=== PATIENT | female | born 1985 | race American Indian/Alaskan Native ===

== ENCOUNTER 2021-02-25 17:14 | Inpatient (IN) | payer BC, OTHER ==
[2021-02-25] MEDS: Lactated Ringers 1,000 ML IV SCH (20:00)
[2021-02-25] MEDS ORDERED: Terbutaline 1 MG/ML SDV SUBCUT PRN (20:12)
[2021-02-25] MEDS ORDERED: Methylergonovine 0.2 MG/1 ML Amp IM PRN (20:12)
[2021-02-25] MEDS ORDERED: Lidocaine 1% 50 ML MDV INJECT PRN (20:12)
[2021-02-25] MEDS ORDERED: Water For Irrigation,Sterile 1,000 ML Container IRR PRN (20:12)
[2021-02-25] MEDS ORDERED: Butorphanol 1 MG/ML SDV IVPUSH PRN (20:12)
[2021-02-25] MEDS ORDERED: Misoprostol 200 MCG Tab PO PRN (20:12)
[2021-02-25] MEDS ORDERED: Nalbuphine 10 MG/1 ML Vial IVPUSH PRN (20:12)
[2021-02-25] MEDS ORDERED: Carboprost Tromethamine 250 MCG/1 ML Amp IM PRN (20:12)
[2021-02-25] MEDS ORDERED: Sodium Chloride 0.9% 10 ML SDV IV PRN (20:12)
[2021-02-25] MEDS ORDERED: Ondansetron 4 MG/2 ML SDV IVPUSH PRN (20:12)
[2021-02-25] MEDS ORDERED: Tranexamic Acid 1,000 MG in Sodium Chloride 0.9% 100 ML IV PRN (20:12)
[2021-02-25] MEDS ORDERED: Sodium Chloride 0.9% 10 ML Syringe FLUSH PRN (20:12)
[2021-02-25] MEDS ORDERED: Acetaminophen 325 MG Tab PO PRN (20:12)
[2021-02-25] MEDS ORDERED: Sodium Chloride 0.9% 2.5 ML Syringe FLUSH PRN (20:12)
[2021-02-25] MEDS ORDERED: Oxytocin/0.9 % Sodium Chloride 30 UNIT/500 ML BAG IV SCH ×2 (20:15)
[2021-02-25] MEDS ORDERED: Misoprostol 25 MCG (1/4 of 100 MCG) Tab VAG PRN (20:30)
[2021-02-25] MEDS ORDERED: Ampicillin 2 GM in Sodium Chloride 0.9% 100 ML IV ONE (20:30)
[2021-02-25] MEDS ORDERED: Sodium Chloride 0.9% 100 ML ONE (20:33)
[2021-02-25] MEDS ORDERED: Ampicillin 2 GM Vial ONE (20:33)
[2021-02-25] MEDS ORDERED: Misoprostol 25 MCG (1/4 of 100 MCG) Tab ONE (20:33)
[2021-02-26] MEDS ORDERED: Ampicillin 1 GM Vial ONE ×2 (00:28→04:02)
[2021-02-26] MEDS ORDERED: Sodium Chloride 0.9% 100 ML ONE ×2 (00:29→04:02)
[2021-02-26] MEDS ORDERED: Misoprostol 25 MCG (1/4 of 100 MCG) Tab VAG PRN ×2 (00:30→02:30)
[2021-02-26] MEDS: Ampicillin 1 GM in Sodium Chloride 0.9% 100 ML IV SCH ×3 (00:33→08:07)
[2021-02-26] MEDS: Lactated Ringers 1,000 ML IV SCH ×3 (02:37→15:36)
[2021-02-26] MEDS ORDERED: Ampicillin 1 GM in Sodium Chloride 0.9% 50 ML IV SCH (12:00)
[2021-02-26] MEDS ORDERED: Benzocaine/Menthol 20%-0.5% Spray 78 GM Cannister TOP PRN (17:17)
[2021-02-26] MEDS ORDERED: Ibuprofen 400 MG Tab PO PRN (17:17)
[2021-02-26] MEDS ORDERED: Witch Hazel Medicated Pads 40/Jar TOP PRN (17:17)
[2021-02-26] MEDS ORDERED: Bisacodyl 10 MG Supp RECTAL PRN (17:17)
[2021-02-26] MEDS ORDERED: Docusate Sodium 100 MG Cap PO PRN (17:17)
[2021-02-26] MEDS ORDERED: oxyCODONE 5 MG Tab PO PRN (17:17)
[2021-02-26] MEDS ORDERED: Acetaminophen 500 MG Tab PO PRN ×2 (17:17)
[2021-02-26] MEDS ORDERED: Lanolin 100% Cream 7 GM Tube TOP PRN (17:17)
--- NOTE | 2021-02-26 17:25 | PCM.OPNOTE ---
- General Post-Op/Procedure Note Date of Surgery/Procedure: 02/26/21 Operative Procedure(s): /1st MLL repaired Findings: Viable male APGARs 9,9 weight pending. Spontaneous delivery intact placenta with 3 V cord. Pre Op Diagnosis: 37/6 week IUP. Mild preeclampsia. GBBS + Post-Op Diagnosis: Same Anesthesia Technique: Local Primary Surgeon: Inna Juarez EBL in mLs: 250 Complications: none known Condition: Stable Free Text/Narrative:: Dictation [id number]
[2021-02-26] MEDS: Ibuprofen 800 MG Tab PO PRN (18:46)
--- NOTE | 2021-02-27 00:32 | OR ---
SURGEON: Inna Juarez M.D. DATE OF PROCEDURE: 02/26/2021 PREOPERATIVE DIAGNOSES: 1. A 37 and 6 weeks' intrauterine . 2. Mild preeclampsia. 3. Group B beta strep positive. POSTOPERATIVE DIAGNOSES: 1. A 37 and 6 weeks' intrauterine . 2. Mild preeclampsia. 3. Group B beta strep positive. PROCEDURES: Spontaneous vaginal delivery and a first-degree midline laceration repaired. ANESTHESIA: Local. COMPLICATIONS: None known. FINDINGS: Viable male, scores 9 at 1 minute and 9 at 5 minutes. Weight is pending. Spontaneous delivery. Intact placenta, 3-vessel cord. DISPOSITION: to nursery, mom in LDRP. 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 She was found to have elevated blood pressures, labs overall reassuring; therefore, she was admitted. Serial blood pressures were performed. She was found to have labile blood pressures ranging in the 110s over 60s to the 150s over 90s, therefore, given term gestation and with abnormal proteinuria, admitted for mild preeclampsia. The patient underwent Cytotec ripening and responded nicely to this with category I heart tones. By the following morning, she was found to be 2 cm, 50% effaced, -2 station. She was transitioned to Pitocin and tolerated this well. She is receiving ampicillin prophylaxis for group B beta strep positive status. Shortly before 9 a.m., the patient underwent amniotomy. A large amount of clear fluid was returned. The head was descending nicely in the pelvis. She was found to be 3 cm, 70% effaced, -2 station. The patient continued to make progress throughout the day. Shortly after 1 p.m., was found to be 7 cm, progressed to 9 cm shortly before 4 p.m., and by 4:30 p.m., she was found to be complete, 100% effaced, 0 station. She began pushing efforts, pushed adequately, and was able to deliver to a +3 station. She was placed in modified dorsal lithotomy position and was prepped and draped in the usual aseptic manner. With continued pushing efforts, she was able to deliver the 's head atraumatically spontaneously, followed by the anterior shoulder, the posterior shoulder, and the remainder of the body. There was a nuchal cord x1 noted. This was reduced manually. The 's oropharynx and nares were bulb suctioned. The was handed off to his mother with attending nursery staff and pole cutter at her side. After a delay, the cord was clamped x2 and cut. Cord arterial, cord venous, and cord blood sampling were obtained. Light pressure was applied while the placenta was delivered spontaneously intact. Vigorous fundal uterine massage was then applied while 30 units of Pitocin was delivered in 500 mL of IV fluid. Upon inspection of the cervix, vaginal sidewall, and perineum, there was found to be a first-degree midline laceration. This region was prepped with approximately 3 mL of 1% lidocaine, and then, using 3-0 Vicryl, 2 [id number] sutures were placed. Hemostasis appeared evident. The patient had tolerated the procedure well overall. Her blood pressures are ranging in the 110s to 130s over 60s to 80s. We will continue to monitor closely. She denies any headache at this time. Sponge, instrument, and needle count was correct. The patient remained in LDRP, to nursery. PATTY / TIMBO /[id number]
[2021-02-27] MEDS: Ibuprofen 800 MG Tab PO PRN (11:06)
--- NOTE | 2021-02-27 13:21 | PCM.PNPP ---
- General Info Date of Service: 02/27/21 Subjective Update: 35yo s/p , she was induced for Mild preclampsia. She denies Headache , RUQ pain and BV Bps - Mild range 120 - 130s /70 - 90s Functional Status: Reports: Pain Controlled, Tolerating Diet, Ambulating, Urinating - Review of Systems General: Reports: No Symptoms HEENT: Reports: No Symptoms Pulmonary: Reports: No Symptoms Cardiovascular: Reports: No Symptoms Gastrointestinal: Reports: No Symptoms Genitourinary: Reports: No Symptoms Musculoskeletal: Reports: No Symptoms Skin: Reports: No Symptoms Neurological: Reports: No Symptoms Psychiatric: Reports: No Symptoms - General Info Date of Service: 02/27/21 - Patient Data Vital Signs - Most Recent: Last Vital Signs Temp 35.6 C L 02/27/21 08:37 Pulse 85 02/27/21 08:37 Resp 18 02/27/21 08:37 BP 134/97 H 02/27/21 08:37 Pulse Ox 95 02/27/21 08:37 Weight - Most Recent: 108.409 kg Lab Results - Last 24 Hours: Laboratory Results - last 24 hr 02/26/21 02/27/21 Range/Units 16:58 06:01 WBC 16.90 H (4.0-11.0) K/uL RBC 3.58 L (4.30-5.90) M/uL Hgb 10.3 L (12.0-16.0) g/dL Hct 31.1 L (36.0-46.0) % MCV 86.9 (80.0-98.0) fL MCH 28.8 (27.0-32.0) pg MCHC 33.1 (31.0-37.0) g/dL RDW Std Deviation 49.4 (28.0-62.0) fl RDW Coeff of Deborah 16 H (11.0-15.0) % Plt Count 201 (150-400) K/uL MPV 10.10 (7.40-12.00) fL Nucleated RBC % 0.0 /100WBC Nucleated RBCs # 0 K/uL Cord ABG pH 7.165 L (7.18-7.38) Cord ABG Base Excess -11 L (-10--2) Cord VBG pH 7.253 (7.25-7.45) Cord VBG Base Excess -10 (-10--2) Med Orders - Current: Current Medications Acetaminophen (Acetaminophen 500 Mg Tab) 500 mg PO Q4H PRN PRN Reason: Pain Acetaminophen (Acetaminophen 500 Mg Tab) 1,000 mg PO Q4H PRN PRN Reason: Pain Benzocaine/Menthol (Benzocaine/Menthol 20%-0.5% [place] 78 Gm Cannister) 78 gm TOP ASDIRECTED PRN PRN Reason: Perineal Comfort Measure Last Admin: 02/26/21 18:44 Dose: 1 canister Documented by: Bisacodyl (Bisacodyl 10 Mg Supp) 10 mg RECTAL ONETIME PRN PRN Reason: Constipation Carboprost Tromethamine (Carboprost Tromethamine 250 Mcg/1 Ml Amp) 250 mcg IM ASDIRECTED PRN PRN Reason: Post Hemorrhage Docusate Sodium (Docusate Sodium 100 Mg Cap) 100 mg PO BID PRN PRN Reason: Constipation Emollient Ointment (Lanolin 100% Cream 7 Gm Tube) 0 gm TOP ASDIRECTED PRN PRN Reason: Sore Nipples Last Admin: 02/26/21 18:42 Dose: 7 g Documented by: Oxytocin/Sodium Chloride (Oxytocin 30 Unit/500 Ml-Ns) 30 unit in 500 mls @ 2 mls/hr IV TITRATE PERLITA; Protocol Last Admin: 02/26/21 16:58 Dose: 999 mls/hr Documented by: Tranexamic Acid 1,000 mg/ (Sodium Chloride) 110 mls @ 660 mls/hr IV ONETIME PRN PRN Reason: Bleeding Lactated Ringer's (Ringers, Lactated) 1,000 mls @ 150 mls/hr IV ASDIRECTED PERLITA Last Admin: 02/26/21 15:36 Dose: 500 mls/hr Documented by: Ibuprofen (Ibuprofen 400 Mg Tab) 400 mg PO Q4H PRN PRN Reason: Pain Ibuprofen (Ibuprofen 800 Mg Tab) 800 mg PO Q6H PRN PRN Reason: Pain Last Admin: 02/27/21 11:06 Dose: 800 mg Documented by: Lidocaine HCl (Lidocaine 1% 50 Ml Mdv) 50 ml INJECT ONETIME PRN PRN Reason: Laceration repair Last Admin: 02/26/21 17:03 Dose: 50 ml Documented by: Ondansetron HCl (Ondansetron 4 Mg/2 Ml Sdv) 4 mg IVPUSH Q6H PRN PRN Reason: Nausea/Vomiting Last Admin: 02/26/21 14:47 Dose: 4 mg Documented by: Oxycodone HCl (Oxycodone 5 Mg Tab) 5 mg PO Q2H PRN PRN Reason: Pain Sodium Chloride (Sodium Chloride 0.9% 10 Ml Syringe) 10 ml FLUSH ASDIRECTED PRN PRN Reason: Keep Vein Open Sodium Chloride (Sodium Chloride 0.9% 2.5 Ml Syringe) 2.5 ml FLUSH ASDIRECTED PRN PRN Reason: Keep Vein Open Sterile Water (Water For Irrigation,Sterile 1,000 Ml Container) 1,000 ml IRR ASDIRECTED PRN PRN Reason: delivery Witch Lisa (Witch Lisa Medicated Pads 40/Jar) 1 pad TOP ASDIRECTED PRN PRN Reason: comfort care Last Admin: 02/26/21 18:45 Dose: 1 tub Documented by: Discontinued Medications Ampicillin Sodium (Ampicillin 2 Gm Vial) Confirm Administered Dose 2 gm .ROUTE .STK-MED ONE Stop: 02/25/21 20:34 Last Admin: 02/26/21 08:08 Dose: Not Given Documented by: Ampicillin Sodium (Ampicillin 1 Gm Vial) Confirm Administered Dose 1 gm .ROUTE .STK-MED ONE Stop: 02/26/21 00:29 Last Admin: 02/26/21 08:08 Dose: Not Given Documented by: Ampicillin Sodium (Ampicillin 1 Gm Vial) Confirm Administered Dose 1 gm .ROUTE .STK-MED ONE Stop: 02/26/21 04:03 Last Admin: 02/26/21 08:08 Dose: Not Given Documented by: Butorphanol Tartrate (Butorphanol 1 Mg/Ml Sdv) 1 mg IVPUSH Q1H PRN PRN Reason: Pain Oxytocin/Sodium Chloride (Oxytocin 30 Unit/500 Ml-Ns) 30 unit in 500 mls @ 2 mls/hr IV TITRATE PERLITA; Protocol Last Titration: 02/26/21 16:58 Dose: 0 munits/min, 0 mls/hr Documented by: Ampicillin Sodium 2 gm/ Sodium (Chloride) 100 mls @ 200 mls/hr IV ONETIME ONE Stop: 02/25/21 20:59 Last Admin: 02/25/21 20:38 Dose: 200 mls/hr Documented by: Ampicillin Sodium 1 gm/ Sodium (Chloride) 100 mls @ 100 mls/hr IV Q4H [facility] Last Admin: 02/26/21 08:07 Dose: 100 mls/hr Documented by: Sodium Chloride (Normal Saline) Confirm Administered Dose 100 mls @ as directed .ROUTE .[facility]-MED ONE Stop: 02/25/21 20:34 Last Admin: 02/26/21 08:08 Dose: Not Given Documented by: Sodium Chloride (Normal Saline) Confirm Administered Dose 100 mls @ as directed .ROUTE .[facility] ONE Stop: 02/26/21 00:30 Last Admin: 02/26/21 08:07 Dose: Not Given Documented by: Sodium Chloride (Normal Saline) Confirm Administered Dose 100 mls @ as directed .ROUTE .[facility] ONE Stop: 02/26/21 04:03 Last Admin: 02/26/21 08:08 Dose: Not Given Documented by: Ampicillin Sodium 1 gm/ Sodium (Chloride) 50 mls @ 100 mls/hr IV Q4H [facility] Last Admin: 02/26/21 12:37 Dose: 100 mls/hr Documented by: Methylergonovine Maleate (Methylergonovine 0.2 Mg/1 Ml Amp) 0.2 mg IM ASDIRECTED PRN PRN Reason: Post Hemorrhage Misoprostol (Misoprostol 200 Mcg Tab) 200 mcg PO ONETIME PRN PRN Reason: Post Hemorrhage Misoprostol (Misoprostol 25 Mcg (1/4 Of 100 Mcg) Tab) 25 mcg VAG ONETIME PRN PRN Reason: Cervical Ripening Last Admin: 02/25/21 20:38 Dose: 25 mcg Documented by: Misoprostol (Misoprostol 25 Mcg (1/4 Of 100 Mcg) Tab) 25 mcg VAG Q6H PRN PRN Reason: Cervical Ripening Misoprostol (Misoprostol 25 Mcg (1/4 Of 100 Mcg) Tab) Confirm Administered Dose 25 mcg .ROUTE .[facility]-MED ONE Stop: 02/25/21 20:34 Last Admin: 02/26/21 08:08 Dose: Not Given Documented by: Misoprostol (Misoprostol 25 Mcg (1/4 Of 100 Mcg) Tab) 25 mcg VAG Q6H PRN PRN Reason: Cervical Ripening Last Admin: 02/26/21 02:33 Dose: 25 mcg Documented by: Nalbuphine HCl (Nalbuphine 10 Mg/1 Ml Vial) 10 mg IVPUSH Q1H PRN PRN Reason: Pain (severe 7-10) Sodium Chloride (Sodium Chloride 0.9% 10 Ml Sdv) 10 ml IV ASDIRECTED PRN PRN Reason: IV Use Terbutaline Sulfate (Terbutaline 1 Mg/Ml Sdv) 0.25 mg SUBCUT ASDIRECTED PRN PRN Reason: Tacysystole - Interaction Support Person: , Mother - Recovery Exam Fundal Tone: Firm Fundal Level: At Umbilicus Fundal Placement: Midline Lochia Amount: Scant Lochia Color: Rubra/Red Perineum Description: Edematous Episiotomy/Laceration: Approximated Bladder Status: Nonpalpable, Voiding Urinary Elimination: Voided - Exam General: Alert HEENT: Pupils Equal Neck: Supple Lungs: Clear to Auscultation Cardiovascular: Regular Rate, Regular Rhythm GI/Abdominal Exam: Normal Bowel Sounds Skin: Warm Neurological: No New Focal Deficit - Problem List & Annotations (1) Mild pre-eclampsia SNOMED Code(s): 29633842 Code(s): O14.00 - MILD TO MODERATE PRE-ECLAMPSIA, UNSPECIFIED TRIMESTER Status: Acute Current Visit: Yes - Problem List Review Problem List Initiated/Reviewed/Updated: Yes - Assessment Assessment:: 35yo s/p , Mild preclampsia , Mild range BPs , Stable Normal lochia - Plan Plan:: Pain control as needed vitamin and iron Continue breast feeding Monitor for signs and symptoms of severe preclampsia Wants Discharge home today Discharge in evening if BP still mild range , will follow up in 1 week for BP check
--- NOTE | 2021-02-28 07:56 | PCM.PNPP ---
- General Info Date of Service: 02/28/21 Subjective Update: Patient doing really well this morning. Denies PIH symptoms. Bleeding scant. Functional Status: Reports: Pain Controlled, Tolerating Diet, Ambulating, Urinating - Review of Systems General: Reports: No Symptoms HEENT: Reports: No Symptoms Pulmonary: Reports: No Symptoms Cardiovascular: Reports: No Symptoms Gastrointestinal: Reports: No Symptoms Genitourinary: Reports: No Symptoms Musculoskeletal: Reports: No Symptoms Skin: Reports: No Symptoms Neurological: Reports: No Symptoms Psychiatric: Reports: No Symptoms - Patient Data Vital Signs - Most Recent: Last Vital Signs Temp 35.8 C L 02/28/21 05:40 Pulse 75 02/28/21 05:40 Resp 16 02/28/21 05:40 BP 124/72 02/28/21 05:40 Pulse Ox 97 02/28/21 05:40 Weight - Most Recent: 108.409 kg Med Orders - Current: Current Medications Acetaminophen (Acetaminophen 500 Mg Tab) 500 mg PO Q4H PRN PRN Reason: Pain Acetaminophen (Acetaminophen 500 Mg Tab) 1,000 mg PO Q4H PRN PRN Reason: Pain Benzocaine/Menthol (Benzocaine/Menthol 20%-0.5% [place] 78 Gm Cannister) 78 gm TOP ASDIRECTED PRN PRN Reason: Perineal Comfort Measure Last Admin: 02/26/21 18:44 Dose: 1 canister Documented by: Bisacodyl (Bisacodyl 10 Mg Supp) 10 mg RECTAL ONETIME PRN PRN Reason: Constipation Carboprost Tromethamine (Carboprost Tromethamine 250 Mcg/1 Ml Amp) 250 mcg IM ASDIRECTED PRN PRN Reason: Post Hemorrhage Docusate Sodium (Docusate Sodium 100 Mg Cap) 100 mg PO BID PRN PRN Reason: Constipation Emollient Ointment (Lanolin 100% Cream 7 Gm Tube) 0 gm TOP ASDIRECTED PRN PRN Reason: Sore Nipples Last Admin: 02/26/21 18:42 Dose: 7 g Documented by: Oxytocin/Sodium Chloride (Oxytocin 30 Unit/500 Ml-Ns) 30 unit in 500 mls @ 2 mls/hr IV TITRATE PERLITA; Protocol Last Admin: 02/26/21 16:58 Dose: 999 mls/hr Documented by: Tranexamic Acid 1,000 mg/ (Sodium Chloride) 110 mls @ 660 mls/hr IV ONETIME PRN PRN Reason: Bleeding Lactated Ringer's (Ringers, Lactated) 1,000 mls @ 150 mls/hr IV ASDIRECTED PERLITA Last Admin: 02/26/21 15:36 Dose: 500 mls/hr Documented by: Ibuprofen (Ibuprofen 400 Mg Tab) 400 mg PO Q4H PRN PRN Reason: Pain Ibuprofen (Ibuprofen 800 Mg Tab) 800 mg PO Q6H PRN PRN Reason: Pain Last Admin: 02/27/21 11:06 Dose: 800 mg Documented by: Lidocaine HCl (Lidocaine 1% 50 Ml Mdv) 50 ml INJECT ONETIME PRN PRN Reason: Laceration repair Last Admin: 02/26/21 17:03 Dose: 50 ml Documented by: Ondansetron HCl (Ondansetron 4 Mg/2 Ml Sdv) 4 mg IVPUSH Q6H PRN PRN Reason: Nausea/Vomiting Last Admin: 02/26/21 14:47 Dose: 4 mg Documented by: Oxycodone HCl (Oxycodone 5 Mg Tab) 5 mg PO Q2H PRN PRN Reason: Pain Sodium Chloride (Sodium Chloride 0.9% 10 Ml Syringe) 10 ml FLUSH ASDIRECTED PRN PRN Reason: Keep Vein Open Sodium Chloride (Sodium Chloride 0.9% 2.5 Ml Syringe) 2.5 ml FLUSH ASDIRECTED PRN PRN Reason: Keep Vein Open Sterile Water (Water For Irrigation,Sterile 1,000 Ml Container) 1,000 ml IRR ASDIRECTED PRN PRN Reason: delivery Witch Lisa (Witch Lisa Medicated Pads 40/Jar) 1 pad TOP ASDIRECTED PRN PRN Reason: comfort care Last Admin: 02/26/21 18:45 Dose: 1 tub Documented by: Discontinued Medications Ampicillin Sodium (Ampicillin 2 Gm Vial) Confirm Administered Dose 2 gm .ROUTE .STK-MED ONE Stop: 02/25/21 20:34 Last Admin: 02/26/21 08:08 Dose: Not Given Documented by: Ampicillin Sodium (Ampicillin 1 Gm Vial) Confirm Administered Dose 1 gm .ROUTE .STK-MED ONE Stop: 02/26/21 00:29 Last Admin: 02/26/21 08:08 Dose: Not Given Documented by: Ampicillin Sodium (Ampicillin 1 Gm Vial) Confirm Administered Dose 1 gm .ROUTE .STK-MED ONE Stop: 02/26/21 04:03 Last Admin: 02/26/21 08:08 Dose: Not Given Documented by: Butorphanol Tartrate (Butorphanol 1 Mg/Ml Sdv) 1 mg IVPUSH Q1H PRN PRN Reason: Pain Oxytocin/Sodium Chloride (Oxytocin 30 Unit/500 Ml-Ns) 30 unit in 500 mls @ 2 mls/hr IV TITRATE PERLITA; Protocol Last Titration: 02/26/21 16:58 Dose: 0 munits/min, 0 mls/hr Documented by: Ampicillin Sodium 2 gm/ Sodium (Chloride) 100 mls @ 200 mls/hr IV ONETIME ONE Stop: 02/25/21 20:59 Last Admin: 02/25/21 20:38 Dose: 200 mls/hr Documented by: Ampicillin Sodium 1 gm/ Sodium (Chloride) 100 mls @ 100 mls/hr IV Q4H PERLITA Last Admin: 02/26/21 08:07 Dose: 100 mls/hr Documented by: Sodium Chloride (Normal Saline) Confirm Administered Dose 100 mls @ as directed .ROUTE .STK-MED ONE Stop: 02/25/21 20:34 Last Admin: 02/26/21 08:08 Dose: Not Given Documented by: Sodium Chloride (Normal Saline) Confirm Administered Dose 100 mls @ as directed .ROUTE .STK-MED ONE Stop: 02/26/21 00:30 Last Admin: 02/26/21 08:07 Dose: Not Given Documented by: Sodium Chloride (Normal Saline) Confirm Administered Dose 100 mls @ as directed .ROUTE .STK-MED ONE Stop: 02/26/21 04:03 Last Admin: 02/26/21 08:08 Dose: Not Given Documented by: Ampicillin Sodium 1 gm/ Sodium (Chloride) 50 mls @ 100 mls/hr IV Q4H PERLITA Last Admin: 02/26/21 12:37 Dose: 100 mls/hr Documented by: Methylergonovine Maleate (Methylergonovine 0.2 Mg/1 Ml Amp) 0.2 mg IM ASDIRECTED PRN PRN Reason: Post Hemorrhage Misoprostol (Misoprostol 200 Mcg Tab) 200 mcg PO ONETIME PRN PRN Reason: Post Hemorrhage Misoprostol (Misoprostol 25 Mcg (1/4 Of 100 Mcg) Tab) 25 mcg VAG ONETIME PRN PRN Reason: Cervical Ripening Last Admin: 02/25/21 20:38 Dose: 25 mcg Documented by: Misoprostol (Misoprostol 25 Mcg (1/4 Of 100 Mcg) Tab) 25 mcg VAG Q6H PRN PRN Reason: Cervical Ripening Misoprostol (Misoprostol 25 Mcg (1/4 Of 100 Mcg) Tab) Confirm Administered Dose 25 mcg .ROUTE .STK-MED ONE Stop: 02/25/21 20:34 Last Admin: 02/26/21 08:08 Dose: Not Given Documented by: Misoprostol (Misoprostol 25 Mcg (1/4 Of 100 Mcg) Tab) 25 mcg VAG Q6H PRN PRN Reason: Cervical Ripening Last Admin: 02/26/21 02:33 Dose: 25 mcg Documented by: Nalbuphine HCl (Nalbuphine 10 Mg/1 Ml Vial) 10 mg IVPUSH Q1H PRN PRN Reason: Pain (severe 7-10) Sodium Chloride (Sodium Chloride 0.9% 10 Ml Sdv) 10 ml IV ASDIRECTED PRN PRN Reason: IV Use Terbutaline Sulfate (Terbutaline 1 Mg/Ml Sdv) 0.25 mg SUBCUT ASDIRECTED PRN PRN Reason: Tacysystole - Interaction Disposition, : in Room with Family Feeding: Bottle Fed , Breastfed ; Nursed Well Support Person: , Mother - Recovery Exam Fundal Tone: Firm Fundal Level: At Umbilicus Fundal Placement: Midline Lochia Amount: Scant Lochia Color: Rubra/Red Other Perinuem Description: 1st degree laceration Bladder Status: Voiding Urinary Elimination: Voided - Exam General: Alert, Oriented Neck: Supple Lungs: Normal Respiratory Effort GI/Abdominal Exam: Soft, Non-Tender, No Distention Extremities: Non-Tender Skin: Warm, Dry, Intact Neurological: No New Focal Deficit Psy/Mental Status: Alert, Normal Affect, Normal Mood - Problem List & Annotations (1) Mild pre-eclampsia SNOMED Code(s): 24804208 Code(s): O14.00 - MILD TO MODERATE PRE-ECLAMPSIA, UNSPECIFIED TRIMESTER Status: Acute Current Visit: Yes (2) Vaginal delivery SNOMED Code(s): 934061376 Code(s): O80 - ENCOUNTER FOR FULL-TERM UNCOMPLICATED DELIVERY Status: Acute Current Visit: No - Problem List Review Problem List Initiated/Reviewed/Updated: Yes - My Orders Last 24 Hours: My Active Orders 02/28/21 07:54 Ready for Discharge [RC] PER UNIT ROUTINE Vaccines to be Administered [RC] PER UNIT ROUTINE Measles, Mumps & Rubella [M-M-R II Vaccine] 0.5 ml SUBCUT .ONCE ONE - Assessment Assessment:: 35yo s/p , Mild preclampsia , BP has normalized Normal lochia - Plan Plan:: Pain control as needed vitamin and iron Continue breast feeding Monitor for signs and symptoms of severe preeclampsia Discharge home today, reviewed precautions/preeclampsia symptoms. BP check in clinic in 1 week. MMR today.
[2021-02-28] MEDS ORDERED: Measles, Mumps & Rubella Vaccine 0.5 ML SDV SUBCUT ONE (08:00)
[2021-02-28 09:16] VITALS: BP 139/89; PULSE 74
== END 2021-02-28 15:16 | disposition home or self-care (01) | DRG 560 ==
LOC: MW.OBCHECK 17:14 → MW.OB 17:14 → MW.OBCHECK 20:12 → OBSVTOIN 02-26 17:17 → MW.OB 02-26 19:04
PROVIDERS: ADMIT Obstetrics & Gynecology; ATTEND Obstetrics & Gynecology
PROC: 10E0XZZ Delivery of Products of Conception, External Approach (ICD-10-PCS; principal; 2021-02-26)
PROC: 0HQ9XZZ Repair Perineum Skin, External Approach (ICD-10-PCS; 2021-02-26)
PROC: 3E0P7VZ Introduction of Hormone into Female Reproductive, Via Natural or Artificial Opening (ICD-10-PCS; 2021-02-26)
PROC: 10907ZC Drainage of Amniotic Fluid, Therapeutic from Products of Conception, Via Natural or Artificial Opening (ICD-10-PCS; 2021-02-26)
PROC: 3E033VJ Introduction of Other Hormone into Peripheral Vein, Percutaneous Approach (ICD-10-PCS; 2021-02-26)
DX: O14.04 Mild to moderate pre-eclampsia, complicating childbirth (principal); Z3A.37 37 weeks gestation of pregnancy; Z37.0 Single live birth; O99.824 Streptococcus B carrier state complicating childbirth; O69.81X0 Labor and delivery complicated by cord around neck, without compression, not applicable or unspecified; O70.0 First degree perineal laceration during delivery; Z20.822 Contact with and (suspected) exposure to COVID-19
CPT/HCPCS: 36415; 59025; 59409; 82803; 85027; 86592; 86850; 86900; 86901; 90707; A9270-GY; G0010; J0290; J2001; J2405; J2590; J7120; U0002

== ENCOUNTER 2021-08-17 14:21 | Emergency (ER) | payer BC, OTHER ==
--- NOTE | 2021-08-17 15:39 | PCM.EKG ---
#1 Interpretation EKG Date: 08/17/21 Time: 15:19 Rhythm: NSR Rate (Beats/Min): 83 [place]: Normal P-Wave: Present QRS: Normal ST-T: Normal QT: Normal Comparison: NA - No Prior EKG EKG Interpretation Comments: Sinus Rhythm
--- NOTE | 2021-08-17 17:04 | EDM.PDOC ---
ED HPI GENERAL MEDICAL PROBLEM - General Chief Complaint: Respiratory Problem Stated Complaint: CHEST COLD,SOAR THROAT Time Seen by Provider: 08/17/21 17:02 - History of Present Illness INITIAL COMMENTS - FREE TEXT/NARRATIVE: CHIEF COMPLAINT(S): Covid-like symptoms HISTORY OF PRESENT ILLNESS: This is a 35-year-old woman without any significant past medical history who comes to the emergency department with a chief complaint of Covid-like symptoms. The patient states that for the last 3 days she has been experiencing body aches, intermittent fever and chest discomfort associated with a headache which is bifrontal behind her eyes which she rates as 6-7 out of 10 not associated with any blurry vision, double vision, loss of vision, numbness, tingling, or weakness. She states that the pain is not exacerbated by anything. She states that she has tried DayQuil without any relief. She states the main reason she is here is because she lost her smell and is concerned that she may have COVID-19. She denies any shortness of breath but states that she does have a mild cough. She denies any other symptoms. REVIEW OF SYSTEMS: Constitutional: Positive for intermittent fever Eyes: Denies eye pain Ears, Nose, Mouth, & Throat: Denies earache Cardiovascular: Positive for chest discomfort denies chest pain Respiratory: Positive for nonproductive cough denies shortness of breath Gastrointestinal: Denies Nausea, vomiting, diarrhea, hematochezia. Genitourinary: Denies hematuria Skin:Denies a rash MSK: Denies joint pain Neurological: Positive for headache. Denies blurred vision, numbness, tingling, weakness Psychiatric: Denies depression PAST MEDICAL HISTORY: As per history of present illness and as reviewed below otherwise noncontributory. SURGICAL HISTORY: As per history of present illness and as reviewed below otherwise noncontributory. SOCIAL HISTORY: As per history of present illness and as reviewed below otherwise noncontributory. FAMILY HISTORY: As per history of present illness and as reviewed below otherwise noncontributory. EXAMINATION OF ORGAN SYSTEMS/BODY AREAS: Constitutional: Blood pressure is 130/90, heart rate 85, respiratory 15 with an oxygen saturation of 95% on room air. Temperature 36.7 General: Well-appearing woman who is in no acute distress Psychiatric: Appropriate mood and affect. Eyes: No scleral icterus or conjunctival erythema ENMT: Moist mucous membranes. No pharyngeal erythema Cardiovascular: Regular, rate, and rhythm. No gallops, murmurs, or rubs. Bilateral upper extremity pulses symmetric and intact. No peripheral edema. No JVD. Respiratory: Lungs clear to auscultation bilaterally. No wheezes, rales, or rhonchi. Gastrointestinal: Soft, non-tender, non-distended. Normoactive bowel sounds Genitourinary: No suprapubic tenderness Musculoskeletal: Normal range of motion. Skin: No lesions or abrasions. Neurological: Alert, GCS 15 strength and sensation grossly intact in upper and lower extremities bilaterally MEDICAL DECISION MAKING AND COURSE IN THE ED WITH INTERPRETATION/REVIEW OF DIAGNOSTIC STUDIES: This is a 35-year-old woman without any significant past medical history who comes to the emergency department with Covid-like symptoms who has normal vital signs. Given the chest discomfort we did obtain a screening EKG which was unremarkable. We will obtain a Covid swab. I do not believe any further labs or other imaging are indicated. DDx: COVID-19, viral upper respiratory infection, pneumonia Laboratory: Covid is positive. After lab I did discuss results with the patient. I did discuss strict return precautions with the patient. I discussed that she is considered high risk given her BMI and did offer the Regeneron therapy. She was amenable to this plan. She had no further questions and was amenable to discharge. DISPOSITION: The patient was discharged home in stable condition. The patient will follow up with primary care physician after her isolation. CONDITION: Fair PROCEDURES: None FINAL IMPRESSION(S)/DIAGNOSES: 1. Acute COVID-19 Gabo Landa M.D. 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 Respiratory History: Reports: None Gastrointestinal History: Reports: None Genitourinary History: Reports: None [employer] History: Reports: Musculoskeletal History: Reports: None Neurological History: Reports: None Psychiatric History: Reports: None Endocrine/Metabolic History: Reports: None Hematologic History: Reports: None Immunologic History: Reports: None Oncologic (Cancer) History: Reports: None Dermatologic History: Reports: None - Infectious Disease History Infectious Disease History: Reports: None - Past Surgical History Head Surgeries/Procedures: Reports: None HEENT Surgical History: Reports: Oral Surgery Other HEENT Surgeries/Procedures: wisdom teeth surgery Cardiovascular Surgical History: Reports: Cardiac Ablation Social & Family History - Family History Family Medical History: No Pertinent Family History Endocrine/Metabolic: Reports: Diabetes, type II - Caffeine Use Caffeine Use: Reports: Coffee ED ROS GENERAL - Review of Systems Review Of Systems: See Below ED EXAM, GENERAL - Physical Exam Exam: See Below Course - Vital Signs Last Recorded V/S: Last Vital Signs Temp 36.7 C 08/17/21 15:23 Pulse 92 08/17/21 17:07 Resp 16 08/17/21 17:07 BP 140/97 H 08/17/21 17:07 Pulse Ox 96 08/17/21 17:07 - Orders/Labs/Meds Labs: Laboratory Tests 08/17/21 Range/Units 16:08 SARS-CoV-2 RNA (VIRGEN) POSITIVE H (NEGATIVE) Departure - Departure Time of Disposition: 17:24 Disposition: Home, Self-Care 01 Condition: Fair Clinical Impression: COVID-19 - Discharge Information *PRESCRIPTION DRUG MONITORING PROGRAM REVIEWED*: No *COPY OF PRESCRIPTION DRUG MONITORING REPORT IN PATIENT VIKY: No Instructions: 10 Things You Can Do to Manage Your COVID-19 Symptoms at Home - [facility] (04/25/2021), Symptoms of COVID-19 - [facility] (12/02/2020), COVID-19: Quarantine vs. Isolation - [facility] (09/26/2020), COVID-19: What to Do If You Are Sick- [facility] (12/25/2020) Referrals: Omari Stevens [Primary Care Provider] - Forms: ED Department Discharge Additional Instructions: You should take acetaminophen 500-1000 mg every 6 hours as needed for fever and muscle aches. Please drink plenty of fluids and get plenty of rest over the next several days. We would recommend that she get a pulse oximeter from the pharmacy to keep an eye on your oxygen level. If your oxygen level drops below 91%, you should return to the ED for evaluation. You should return to the ER sooner if you start having any symptoms of shortness of breath or any other new or concerning symptoms. 1. Your COVID-19 screening is positive. That means you do have the coronavirus and you are considered contagious. Your vital signs and oxygen saturation are well enough that you were able to monitor your symptoms at home. Continue to monitor for trouble breathing, new confusion or inability to arouse, bluish lips or face or any of the other symptoms we discussed -if this occurs please return to the emergency room. 2. Please self quarantine over the next 10 days. Inform any persons that you have been in contact with since you started becoming symptomatic that you have tested positive; they should be made aware and take the appropriate steps as needed. 3. May alternate Tylenol and ibuprofen as needed for pain and fever management. 4. The [facility] department will be calling you and following up with you. The [place] COVID 19 Hotline phone number , They are open Wednesday - Wednesday 7am - 7pm. Follow up with your primary care provider for re-evaluation and re-testing after the 10 day quarantine and discuss when you should be seen. [facility] [address] [place] [id number] [place] [address] The patient is informed of any results of their evaluation and diagnostic workup and all questions are answered. They are given discharge instructions and return precautions. The patient is stable for discharge. The patient states they understand and agree with the plan and that they will return if their symptoms get worse or if they have any new concerns. The following information is given to patients seen in the emergency department who are being discharged to home. This information is to outline your options for follow-up care. We provide all patients seen in our emergency department with a follow-up referral. The need for follow-up, as well as the timing and circumstances, are variable depending upon the specifics of your emergency department visit. If you don't have a primary care physician on staff, we will provide you with a referral. We always advise you to contact your personal physician following an emergency department visit to inform them of the circumstance of the visit and for follow-up with them and/or the need for any referrals to a consulting specialist. The emergency department will also refer you to a specialist when appropriate. This referral assures that you have the opportunity for follow-up care with a specialist. All of these measure are taken in an effort to provide you with optimal care, which includes your follow-up. Under all circumstances we always encourage you to contact your private physician who remains a resource for coordinating your care. When calling for follow-up care, please make the office aware that this follow-up is from your recent emergency room visit. If for any reason you are refused follow-up, please contact the [facility] Emergency Department at and asked to speak to the emergency department charge nurse. Sepsis Event Note (ED) - Evaluation Sepsis Screening Result: No Definite Risk
[2021-08-17 17:09] VITALS: BP 140/97; PULSE 92
== END 2021-08-17 17:40 | disposition home or self-care (01) ==
LOC: MW.ED 14:21
DX: U07.1 COVID-19 (principal)
CPT/HCPCS: 93005; 99284; U0002

== ENCOUNTER 2023-12-04 14:21 | Emergency (ER) | payer BC, OTHER ==
[2023-12-04] MEDS: Ibuprofen 600 MG Tab PO ONE (15:23)
[2023-12-04 15:26] VITALS: BP 147/97; PULSE 113
== END 2023-12-04 15:25 | disposition home or self-care (01) ==
LOC: MW.ED 14:21
DX: S49.92XA Unspecified injury of left shoulder and upper arm, initial encounter (principal); Y04.8XXA Assault by other bodily force, initial encounter
CPT/HCPCS: 73030; 99284; A9270; 99283

== ENCOUNTER 2024-02-23 14:51 | Emergency (ER) | payer BC, OTHER ==
[2024-02-23 15:37] LABS: BASOPHILS ABSOLUTE AUTO 0.02 K/uL (0.00-0.20); BASOPHILS PERCENT AUTO 0.2 % (0.0-1.0); EOSINOPHILS ABSOLUTE AUTO 0.17 K/uL (0.00-0.45); EOSINOPHILS PERCENT AUTO 1.6 % (0.0-6.0); HEMATOCRIT 40.8 % (37.0-47.0); IMMATURE GRAN ABSOLUTE AUTO 0.03 K/uL (0.00-0.05); IMMATURE GRAN PERCENT AUTO 0.3 % (0.0-0.4); LYMPHOCYTES ABSOLUTE AUTO 2.82 K/uL (1.00-4.80); LYMPHOCYTES PERCENT AUTO 26.9 % (24.0-44.0); MEAN CORPUSCULAR HEMOGLOBIN 28.9 pg (28.0-32.0); MEAN CORPUSCULAR HGB CONC 34.3 g/dL (32.0-36.0); MEAN CORPUSCULAR VOLUME 84.3 fL (83.0-99.0); MEAN PLATELET VOLUME 10.7 fL (9.4-12.3); MONOCYTES ABSOLUTE AUTO 0.49 K/uL (0.00-0.80); MONOCYTES PERCENT AUTO 4.7 % (0.0-8.0); NEUTROPHILS ABSOLUTE AUTO 6.96 K/uL (1.80-7.70); NEUTROPHILS PERCENT AUTO 66.3 % (41.0-71.0); PLATELET COUNT,PLT 256 K/uL (150-400); RED BLOOD CELL COUNT 4.84 M/uL (4.10-5.30); WHITE BLOOD CELL COUNT,WBC 10.49 K/uL (3.9-11.3)
[2024-02-23 15:56] LABS: HEMATOCRIT 39.7 % (37.0-47.0); HEMOGLOBIN 13.7 g/dL (12.0-16.0); MEAN CORPUSCULAR HEMOGLOBIN 28.5 pg (28.0-32.0); MEAN CORPUSCULAR HGB CONC 34.5 g/dL (32.0-36.0); MEAN CORPUSCULAR VOLUME 82.7 fL (83.0-99.0); MEAN PLATELET VOLUME 10.3 fL (9.4-12.3); PLATELET COUNT,PLT 255 K/uL (150-400)
[2024-02-23 16:18] LABS: A/G RATIO 0.9 (0.9-1.6); ALBUMIN 3.7 g/dL (3.4-5.0); BILIRUBIN TOTAL 0.8 mg/dL (0.2-1.0); CARBON DIOXIDE,CO2 21.7 mmol/L (21.0-32.0); CREATININE 0.7 mg/dL (0.6-1.0); EST CRCL DRUG DOSING (CG) 104.01 mL/min; POTASSIUM,K 3.5 mmol/L (3.5-5.1)
[2024-02-23 16:20] LABS: APPEARANCE,URINE CLEAR; BILIRUBIN,URINE NEGATIVE (NEGATIVE); COLOR,URINE YELLOW; GLUCOSE,URINE NEGATIVE (NEGATIVE); KETONES,URINE NEGATIVE (NEGATIVE); LEUKOCYTE ESTERASE,URINE TRACE (NEGATIVE); NITRITE,URINE NEGATIVE (NEGATIVE); OCCULT BLOOD,URINE LARGE (NEGATIVE); PH,URINE 6.5 (5.0-8.0); PROTEIN,URINE NEGATIVE (NEGATIVE); UROBILINOGEN,URINE 0.2 EU/dL (<2.0)
[2024-02-23 16:23] VITALS: PULSE 92
[2024-02-23 16:34] LABS: AMORPHOUS SEDIMENT,URINE LIGHT (NEGATIVE); BACTERIA,URINE FEW (NEGATIVE); EPITHELIAL CELLS,URINE FEW (NONE-FEW)
[2024-02-23 17:52] VITALS: BP 158/74
== END 2024-02-23 17:47 | disposition home or self-care (01) ==
LOC: MW.ED 14:51
DX: O02.0 Blighted ovum and nonhydatidiform mole (principal); Z75.8 Other problems related to medical facilities and other health care
CPT/HCPCS: 36415; 76817; 76817-26; 80053; 81001; 81003; 84702; 85025; 85027; 86900; 86901; 87086; 99283; 99284

== ENCOUNTER 2024-05-01 01:41 | Emergency (ER) | payer MEDICAID ==
[2024-05-01] MEDS ORDERED: Sodium Chloride 0.9% 2.5 ML Syringe FLUSH PRN (01:59)
[2024-05-01] MEDS ORDERED: Sodium Chloride 0.9% 10 ML Syringe FLUSH PRN (01:59)
[2024-05-01 02:39] LABS: BASOPHILS ABSOLUTE AUTO 0.03 K/uL (0.00-0.20); BASOPHILS PERCENT AUTO 0.2 % (0.0-1.0); EOSINOPHILS ABSOLUTE AUTO 0.22 K/uL (0.00-0.45); EOSINOPHILS PERCENT AUTO 1.6 % (0.0-6.0); HEMATOCRIT 34.5 % (37.0-47.0); HEMOGLOBIN 10.6 g/dL (12.0-16.0); IMMATURE GRAN ABSOLUTE AUTO 0.04 K/uL (0.00-0.05); IMMATURE GRAN PERCENT AUTO 0.3 % (0.0-0.4); LYMPHOCYTES ABSOLUTE AUTO 3.73 K/uL (1.00-4.80); LYMPHOCYTES PERCENT AUTO 27.9 % (24.0-44.0); MEAN CORPUSCULAR HEMOGLOBIN 23.8 pg (28.0-32.0); MEAN CORPUSCULAR HGB CONC 30.7 g/dL (32.0-36.0); MEAN CORPUSCULAR VOLUME 77.5 fL (83.0-99.0); MEAN PLATELET VOLUME 11.3 fL (9.4-12.3); MONOCYTES ABSOLUTE AUTO 0.74 K/uL (0.00-0.80); MONOCYTES PERCENT AUTO 5.5 % (0.0-8.0); NEUTROPHILS ABSOLUTE AUTO 8.59 K/uL (1.80-7.70); NEUTROPHILS PERCENT AUTO 64.5 % (41.0-71.0); PLATELET COUNT,PLT 281 K/uL (150-400); RED BLOOD CELL COUNT 4.45 M/uL (4.10-5.30); WHITE BLOOD CELL COUNT,WBC 13.35 K/uL (3.9-11.3)
[2024-05-01 02:55] LABS: APPEARANCE,URINE CLOUDY; BILIRUBIN,URINE NEGATIVE (NEGATIVE); COLOR,URINE RED; GLUCOSE,URINE 100 mg/dL (NEGATIVE); KETONES,URINE 15 mg/dL (NEGATIVE); LEUKOCYTE ESTERASE,URINE MODERATE (NEGATIVE); NITRITE,URINE POSITIVE (NEGATIVE); OCCULT BLOOD,URINE LARGE (NEGATIVE); PH,URINE 7.5 (5.0-8.0); PROTEIN,URINE >=300 mg/dL (NEGATIVE)
[2024-05-01 03:08] LABS: A/G RATIO 1.1 (0.9-1.6); ALANINE AMINOTRANSFERASE,ALT 24 IU/L (14-63); ALBUMIN 3.8 g/dL (3.4-5.0); ALKALINE PHOSPHATASE 63 U/L (46-116); ASPARTATE AMNIOTRANSFERASE,AST 22 IU/L (15-37); BILIRUBIN TOTAL 0.3 mg/dL (0.2-1.0); BLOOD UREA NITROGEN,BUN 12 mg/dL (7.0-18.0); CALCIUM 8.8 mg/dL (8.5-10.1); CARBON DIOXIDE,CO2 24.2 mmol/L (21.0-32.0); CHLORIDE,CL 103 mmol/L (98-107); CREATININE 0.8 mg/dL (0.6-1.0); EST CRCL DRUG DOSING (CG) 91.01 mL/min; GLUCOSE RANDOM 100 mg/dL (74-106); POTASSIUM,K 3.7 mmol/L (3.5-5.1); PROTEIN TOTAL,TP 7.4 g/dL (6.4-8.2); SODIUM,NA 139 mmol/L (136-145)
[2024-05-01 03:09] LABS: BACTERIA,URINE 1+ (NEGATIVE); EPITHELIAL CELLS,URINE RARE (NONE-FEW); RBC,URINE TOO NUMEROUS TO CT (0-2/HPF)
[2024-05-01 03:10] LABS: ESTIMATED GFR 98 mL/min (>60); HCG QUANTITATIVE < 1.0 mIU/mL
[2024-05-01 03:27] VITALS: BP 143/104; PULSE 96
== END 2024-05-01 03:34 | disposition home or self-care (01) ==
LOC: MW.ED 01:41
DX: N93.9 Abnormal uterine and vaginal bleeding, unspecified (principal); I10 Essential (primary) hypertension; Z75.8 Other problems related to medical facilities and other health care
CPT/HCPCS: 36415; 80053; 81001; 84702; 85025; 99283; 99284